=== PATIENT | female | born 2000 | race African-American/Black ===

== ENCOUNTER 2024-12-23 20:23 | Emergency (ER) | payer OTHER, SELFPAY ==
--- NOTE | ~2024-12-23 | CT_ITS ---
CT of the Abdomen and Pelvis: Indication: Abdominal pain Technique: 2.5 mm axial scans were obtained through the abdomen and pelvis following intravenous adm inistration of 100 cc of Omnipaque 350. Dose reduction technique was used on this scan by utilizing a utomated exposure control and iterative reconstruction technique. The dose-length product (DLP) was 4 08.91 mGy-cm. Findings: Scans through the lung bases are unremarkable. The liver, spleen, pancreas, gallbladder, adrenals and kidneys are within normal limits. No evidence of aortic aneurysm. No lymphadenopathy. No bowel obstruction or bowel wall thickening. There is no evidence to suggest acute appendicitis. Images through the pelvis were performed. 3.5 cm right ovarian cyst present. No other adnexal mass se en. No ascites. Urinary bladder unremarkable. Impression: 3.5 cm right ovarian cyst. Reviewed, dictated and finalized at [facility]. GENERATION MARKETING MANAGER Impression: 3.5 cm right ovarian cyst.
--- OUTSIDE RECORDS SUMMARY | 2024-12-23 20:21 | XMS_ITS | CONTINUITY OF CARE DOCUMENT ---
Author Name sonny dennis Address Unknown Organization [facility] [address] Address [address] [place] [address] Phone [phone] Care Team Providers Care Paper Cutting Machine Operator Name Role Phone Rush Dunn MD Unavailable [phone] Rush Dunn MD Unavailable [phone] INSURANCE PROVIDERS Payer name Policy type / Coverage type Eduardo red green party ID [facility] [facility] (MEDICAID) Medicaid [id number]
[2024-12-23 20:42] VITALS: BP 127/78; PULSE 85; RESP 16; TEMP 36.7; O2SAT 100
[2024-12-23 22:00] VITALS: BP 130/67; PULSE 89; RESP 18; O2SAT 100
--- OUTSIDE RECORDS SUMMARY | 2024-12-23 23:03 | XMS_ITS | Patient Health Summary ---
Author Organization [facility] HipChat Address [address] [facility] [place] [address] Care Team Providers Care Wool Hat Flanger Name Role Phone Allan Davalos Primary Care Provider [phone] Note from [facility],non-owned Affiliates and Associated Physician Practices is amultiple site organization consisting of ambulatory clinics and hospital sitesin [place], [place], [place] and [place]. This disclosure is being madepursuant to the Care Everywhere program and may not contain all information available regarding this patient. Last updated 18.[facility] Allergies No known active allergies Medications * Be aware that medications may not be up to date on this document. Alwaysverify current medications with the patient. * acetaminophen (TYLENOL) 500 MG tablet Take 500 mg by mouth every 4 hours as needed for Fever or Pain Maximum allowable Acetaminophen amount = 4 Grams (4000 mg) / 24 hours. * famotidine (PEPCID) 20 MG tablet(Started 09/04/2020) Take 1 tablet by mouth once daily * scopolamine (Transderm-Scop) 1 MG patch(Started 09/20/2022) Apply 1 (one) patch to skin every 72 hours as needed for Other * prochlorperazine (Compazine) 10 MG tablet(Started 09/20/2022) Take 1 (one) tablet by mouth every 8 hours as needed for Nausea/Vomiting * fluticasone propionate (Flonase Allergy Relief) 50 MCG/ACT nasal spray(Started 01/11/2024) [place] 2 (two) sprays into each nostril once daily Reasons: Stuffy Nose * cetirizine (ZyrTEC) 10 MG tablet(Started 01/11/2024) Take 1 (one) tablet by mouth once daily * ibuprofen (Motrin) 400 MG tablet(Started 01/11/2024) Take 1 (one) tablet by mouth every 6 hours as needed for Pain Reasons: Fever, Pain Social History Tobacco Use Types Packs/Day Years Used Date Smoking Tobacco: Never Smokeless Tobacco: Never Tobacco Cessation:Counseling Given: Not Answered Alcohol Use Standard Drinks/Week Comments Never 0 (1 standard drink = 0.6 oz pur e alcohol) AUDIT-C Answer Date Recorded Q1: How often do you have a drink containing alc ohol? Never 05/24/2020 Average Number of Drinks Not on file 020 Frequency of Binge Drinking Not on file 04/2020 Sex and Gender Information Value Date Recorded Sex Assigned at Not on file Gender Identity Not on file Sexual Orientation Not on file Last Filed Vital Signs Vital Sign Reading Time Taken Comments Blood Pressure 102/62 01/11/2024 7:23 PM [facility] Pulse 72 01/11/2024 7:23 PM [facility] Temperature 36.4 ??C (97.6 ??F) 01/11/2024 7:23 PM CS T Respiratory Rate 18 01/11/2024 7:23 PM [facility] Oxygen Saturation 97% 01/11/2024 7:23 PM [facility] Inhaled Oxygen Concentration - - Weight 57.6 kg (126 lb 15.8 oz) 01/11/2024 7:23 PM [facility] Height 165.1 cm (5' 5 ) 09/27/2022 11:5 4 AM [facility] Body Mass Index 21.13 09/27/2022 11:54 AM [facility] Procedures * US OB LESS 14 WKS W TRANSV W DOPP(Performed 09/20/2022) Performed for Pelvic pain in female * CBC W AUTO DIFFERENTIAL(Performed 09/20/2022) * MAGNESIUM BLOOD(Performed 09/20/2022) * HCG BETA BLOOD QUANTITATIVE(Performed 09/20/2022) * COMPREHENSIVE METABOLIC PANEL(Performed 09/20/2022) * HCG URINE QUALITATIVE(Performed 09/04/2020) * URINALYSIS W/MICROSCOPIC NO CULTURE(Performed 09/04/2020) * DIFFERENTIAL MANUAL(Performed 09/04/2020) * LIPASE BLOOD(Performed 09/04/2020) * COMPREHENSIVE METABOLIC PANEL(Performed 09/04/2020) * CBC W AUTO DIFFERENTIAL(Performed 09/04/2020) * HCG URINE QUAL POCT NOTIFICATION(Performed 05/25/2020) * HCG URINE QUALITATIVE - POCT (IP) INTERFACED(Performed 05/25/2020) * URINALYSIS W/MICROSCOPIC NO CULTURE(Performed 05/25/2020) * CT HEAD WO CONTRAST(Performed 04/29/2016) Performed for Chronic nonintractable headache, unspecified headache type * HCG URINE QUALITATIVE - POCT (IP) BEAKER(Performed 04/29/2016) * MONONUCLEOSIS SCREEN(Performed 04/29/2016) * PT PTT PANEL(Performed 04/29/2016) * CBC W AUTO DIFFERENTIAL(Performed 04/29/2016) * CULTURE STREP GROUP A(Performed 04/29/2016) * STREP A SCREEN DIRECT W RFLX STREP A CULTURE(Performed 04/29/2016) * CULTURE STREP GROUP A(Performed 06/23/2014) * STREP A SCREEN DIRECT W RFLX STREP A CULTURE(Performed 06/23/2014) Results * US OB LESS 14 WKS W TRANSV W DOPP (09/20/2022 4:27 PM CDT) Anatomical Region Laterality Modality Pelvis Ultrasound 09/20/2022 4:50 PM CDT Impressions 09/20/2022 4:53 PM CDT IMPRESSION: 1. ??Single live intrauterine gestation, 9 weeks 5 days. 2. ??Small subchorionic hemorrhage > Interpreting Provider: Bibiana Villafana MD on 09/20/2022 4:53 PM Narrative 09/20/2022 4:53 PM CDT PROCEDURE: ??US OB LESS 14 WKS W TRANSV W DOPP, DATE/TIME OF EXAM: 09/20/2022 4:27 PM, LOCATION ??[facility] INDICATION: R10.2: Pelvic and perineal pain ADDITIONAL CLINICAL INFORMATION: Ordering Provider Reason For Exam: Technologist Note: ??Pelvic pain, beta hCG greater than 225,000 Additional: COMPARISON: None. TECHNIQUE: Real time transvaginal pelvic ultrasound was performed by the email operations manager with DICOM image capture. Obstetric follow-up care is recommended possibly including follow-up laboratory evaluation and dedicated obstetric ultrasound examinations at OB's discretion. This exam does not constitute a survey. FINDINGS: The uterus measures 9.6 x 7.1 x 8.1 cm. ??The myometrium is normal. ??Within the fundal endometrial canal there is a gestational sac containing a pole and yolk sac. ??Based on crown-rump length, gestational age is 9 weeks and 5 days with estimated date of delivery of 04/20/2023. ?? heart rate is recorded at 156 bpm. ??There is a small subchorionic hemorrhage measuring 1.2 x 0.2 x 0.8 cm. The right ovary measures 2.8 x 1.3 x 1.7 cm and contains small simple follicles and is normally perfused as seen on color Doppler with spectral analysis. The left ovary measures 3.8 x 2.0 x 3.3 cm and contains a dominant but simple 1.8 cm follicle. ??The ovary is normally perfused as seen on color Doppler with spectral analysis. No free fluid. ??The maternal urinary bladder is normal. Procedure Note Bibiana Villafana MD - 09/20/2022 PROCEDURE: US OB LESS 14 WKS W TRANSV W DOPP, DATE/TIME OF EXAM: 09/20/2022 4:27 PM, LOCATION [facility] INDICATION: R10.2: Pelvic and perineal pain ADDITIONAL CLINICAL INFORMATION: Ordering Provider Reason For Exam: Technologist Note: Pelvic pain, beta hCG greater than 225,000 Additional: COMPARISON: None. TECHNIQUE: Real time transvaginal pelvic ultrasound was performed by thesonographer with DICOM image capture. Obstetric follow-up care is recommended possibly including follow-up laboratory evaluation and dedicated obstetric ultrasound examinations at OB's discretion. This exam does not constitute a survey. FINDINGS: The uterus measures 9.6 x 7.1 x 8.1 cm. The myometrium is normal.Within the fundal endometrial canal there is a gestational sac containing afetal pole and yolk sac. Based on crown-rump length, gestational age is 9weeks and 5 days with estimated date of delivery of 04/20/2023. heartrate is recorded at 156 bpm. There is a small subchorionic hemorrhagemeasuring 1.2 x 0.2 x 0.8 cm. The right ovary measures 2.8 x 1.3 x 1.7 cm and contains small simple follicles and is normally perfused as seen on color Doppler withspectral analysis. The left ovary measures 3.8 x 2.0 x 3.3 cm and contains a dominant but simple 1.8 cm follicle. The ovary is normally perfused as seen on color Doppler with spectral analysis. No free fluid. The maternal urinary bladder is normal. IMPRESSION: 1. Single live intrauterine gestation, 9 weeks 5 days. 2. Small subchorionic hemorrhage > Interpreting Provider: Bibiana Villafana MD on 09/20/2022 4:53 PM [employer] LEGAL DIRECTOR-CAMP COORDINATOR US ORDERABLES * (ABNORMAL) CBC W AUTO DIFFERENTIAL (09/20/2022 1:51 PM CDT) Only the most recent of3 resultswithin the time period is included. WBC 7.9 4.4 - 10.7 x10E9/L 09/20/2022 1:53 PM CDT [facility] WBC Corrected 09/20/2022 1:53 PM CDT [facility] RBC 4.49 3.80 - 5.20 x10E12/L 09/20/2022 1:53 PM CDT [facility] Hemoglobin 12.7 12.0 - 15.6 gm/dL 09/20/2022 1:53 PM CDT [facility] Hematocrit 37.1 35.9 - 45.5 % 09/20/2022 1:53 PM CDT [facility] MCV 82.6 80.7 - 98.3 fl 09/20/2022 1:53 PM CDT [facility] MCH 28.3 26.7 - 34.0 pg 09/20/2022 1:53 PM CDT [facility] MCHC 34.2 30.8 - 35.9 gm/dL 09/20/2022 1:53 PM CDT [facility] Platelet Count 344 153 - 416 x10E9/L 09/20/2022 1:53 PM CDT [facility] RDW-CV 12.8 12.1 - 14.9 % 09/20/2022 1:53 PM CDT [facility] MPV 8.7(L) 9.4 - 12.9 fl 09/20/2022 1:53 PM CDT [facility] Neutrophils % 56.3 44.0 - 73.0 % 09/20/2022 1:53 PM CDT [facility] Lymphocytes % 32.6 20.0 - 43.0 % 09/20/2022 1:53 PM CDT [facility] Monocytes % 9.0 5.0 - 13.0 % 09/20/2022 1:53 PM CDT [facility] Eosinophils % 1.3 0.0 - 6.0 % 09/20/2022 1:53 PM CDT [facility] Basophils % 0.5 0.0 - 2.0 % 09/20/2022 1:53 PM CDT [facility] Immature Granulocytes 0.3 0 - 1 % 09/20/2022 1:53 PM CDT [facility] Neutrophil Absolute 4.47 2.01 - 7.14 x10E9/L 09/20/2022 1:53 PM CDT [facility] Lymphocytes Absolute 2.58 1.07 - 3.94 x10E9/L 09/20/2022 1:53 PM CDT [facility] Monocytes Absolute 0.71 0.26 - 1.07 x10E9/L 09/20/2022 1:53 PM CDT [facility] Eosinophils Absolute 0.10 0 - 0.47 x10E9/L 09/20/2022 1:53 PM CDT [facility] Basophils Absolute 0.04 0 - 0.08 x10E9/L 09/20/2022 1:53 PM CDT [facility] Immature Granulocytes Absolute 0.02 0.00 - 0.06 x10E9/L 09/20/2022 1:53 PM CDT [facility] nRBC Auto 0 /100 WBC 09/20/2022 1:53 PM CDT [facility] Blood BLOOD SPECIMEN / Unknown Venipuncture / Unknown 09/20/2022 1:51 PM CDT 09/20/2022 1:50 PM CDT Rakan [facility] - HEMATOLOGY ORD ERABLES [facility] [address] [place] [address] * (ABNORMAL) COMPREHENSIVE METABOLIC PANEL (09/20/2022 1:50 PM CDT) Only the most recent of2 resultswithin the time period is included. [facility] Glucose 74 70 - 105 mg/dL 09/20/2022 2:08 PM CDT [facility] Sodium 134(L) 136 - 145 mmol/L 09/20/2022 2:08 PM CDT [facility] Potassium 4.1 3.5 - 5.1 mmol/L 09/20/2022 2:08 PM CDT [facility] Chloride 102 98 - 107 mmol/L 09/20/2022 2:08 PM CDT [facility] CO2 22(L) 23 - 31 mmol/L 09/20/2022 2:08 PM CDT [facility] Calcium 9.4 8.4 - 10.4 mg/dL 09/20/2022 2:08 PM T [facility] Anion Gap 10 8 - 18 mmol/L 09/20/2022 2:08 PM CDT [facility] BUN 9 7 - 18.7 mg/dL 09/20/2022 2:08 PM CDT [facility] Creatinine 0.64 0.57 - 1.11 mg/dL 09/20/2022 2:08 PM T [facility] Alkaline Phosphatase 53 40 - 150 U/L 09/20/2022 2:08 PM CDT [facility] ALT 16 0 - 61 U/L 09/20/2022 2:08 PM T [facility] AST 17 5 - 34 U/L 09/20/2022 2:08 PM T [facility] Protein Total 8.6(H) 6.4 - 8.3 gm/dL 09/20/2022 2:08 PM CDT [facility] Albumin 4.5 3.5 - 5.2 gm/dL 09/20/2022 2:08 PM CDT [facility] Bilirubin Total 0.4 0.2 - 1.2 mg/dL 09/20/2022 2:08 PM T [facility] eGFR by CKD-EPI >90 >=90 mL/min/1.7 3 m2 09/20/2022 2:08 PM T [facility] Blood BLOOD SPECIMEN / Unknown Venipuncture / Unknown 09/20/2022 1:50 PM CDT 09/20/2022 1:50 PM CDT Rakan [facility] - CHEMISTRY FRANCA Koo Organization Address City/State/ZIP Co de Phone Number [facility] [address] [phone] * HCG BETA BLOOD QUANTITATIVE (09/20/2022 1:50 PM CDT) hCG Quantitative >225,000 mIU/mL 09/20/20 2:34 PM CDT [facility] Blood BLOOD SPECIMEN / Unknown Venipuncture / Unknown 09/20/2022 1:50 PM CDT 09/20/2022 1:50 PM CDT Narrative [facility] - 09/20/2022 2:34 PM CDT ? hCG Reference Range, mIU/mL: ? Males ? 0-2.0 ? Non Females ? 0-6.0 ? Perimenopausal Females ages 41-55* ?0-7.7 ? Postmenopausal Females age >55* ? 0-14 ? Females, Weeks after Last Menstrual Period ?0.2-1 week ? 5-50 ?1 - 2 weeks ?50-500 ?2 - 3 weeks ?100-5000 ?3 - 4 weeks ?500-10,000 ?4 - 5 weeks ?1000-50,000 ?5 - 6 weeks ?10,000-100,000 ?6 - 8 weeks ?15,000-200,000 ?2 - 3 months ? 10,000-100,000 ?Trophoblastic Disease ?>100,000 *In higher than expected hCG in females > age 40, a serum FSH >20 IU/L makes unlikely. Rakan [facility] - CHEMISTRY LETTYNexBioFADUMO Performing Organization Address [facility] Co de Phone Number [facility] [address] [place] [id number] * MAGNESIUM BLOOD (09/20/2022 1:50 PM CDT) [facility] Magnesium 2.1 1.6 - 2.6 mg/dL 09/20/2022 2:08 PM CDT [facility] Blood BLOOD SPECIMEN / Unknown Venipuncture / Unknown 09/20/2022 1:50 PM CDT 09/20/2022 1:50 PM CDT Rakan [facility] - CHEMISTRY UNX Performing Organization Address [facility] de Phone Number [facility] [address] [place] [phone] * (ABNORMAL) URINALYSIS W/MICROSCOPIC NO CULTURE (09/04/2020 2:50 AM CDT) Only the most recent of2 resultswithin the time period is included. Color UA Yellow Straw, Yellow, Colorless 09/04/2020 3:15 AM CDT [facility] Clarity UA Cloudy(A) Clear, Slt Cloudy 09/04/2020 3:15 AM CDT [facility] Specific Wiley UA 1.028 1.005 - 1.030 09/04/2020 3:15 AM CDT [facility] pH UA 5.0 5.0 - 8.0 pH 09/04/2020 3:15 AM CDT H [facility] Protein UA Negative Negative mg/dL 09/04/2020 3:15 AM [facility] Glucose UA Negative Negative mg/dL 09/04/2020 3:15 AM [facility] Ketone UA Negative Negative mg/dL 09/04/2020 3:15 AM [facility] Bilirubin UA Negative Negative mg/dL 09/04/2020 3:15 AM [facility] Blood UA 2+(A) Negative 09/04/2020 3:15 AM [facility] Nitrite UA Negative Negative 09/04/2020 3:15 AM [facility] Leukocyte Esterase Trace(A) Negative 09/04/2020 3:15 AM [facility] Urobilinogen UA 2.0(A) Negative mg/dL 09/04/2020 3:15 AM [facility] RBC UA 0-2 None Seen, 0-2, 3-5 /HPF 09/04/2020 3:15 AM [facility] WBC UA 0-5 None Seen, 0-5 /HPF 09/04/2020 3:15 AM [facility] Bacteria UA Trace None, Trace /HPF 09/04/2020 3:15 AM [facility] Squamous Epithelial Cells UA >20(A) None Seen, 0-2 /HPF 09/04/2020 3:15 AM [facility] Mucus UA 3+(A) None, 1+ /LPF 09/04/2020 3:15 AM [facility] Urine URINE SPECIMEN OBTAINED BY CLEAN CATCH PROCEDURE / Unknown Collection / Unknown 09/04/2020 2:50 AM CDT 09/04/2020 2:56 AM CDT [facility] - 09/04/2020 3:15 AM CDT Jonas Pederson MD LAB - URINALYSIS ORD ERABLES [address] [address], [place] [phone] * HCG URINE QUALITATIVE (09/04/2020 2:50 AM CDT) Test Urine Negative Negative 09/04/2020 3:13 AM [facility] Urine URINE / Unknown Collection / Unknown 09/04/2020 2:50 AM CDT 09/04/2020 2:56 AM CDT Jonas Pederson MD LAB - URINALYSIS ORD ERABLES [facility] [address] [place] [address], [facility] [phone] * (ABNORMAL) DIFFERENTIAL MANUAL (09/04/2020 2:44 AM CDT) WBC (corrected for NRBC) 7.2 10? 3 /uL 09/04/2020 4:36 AM [facility] Total Cell Count 100 09/04/2020 4:36 AM [facility] Neutrophils Absolute Manual 2.02 1.60 - 7.00 10? 3 /uL 09/04/2020 4:36 AM [facility] Comment:(BANDS+SEGS) x WBC = NEUT # (ANC) Lymphocyte Absolute Manual 4.46(H) 0.80 - 2.90 10? 3 /uL 09/04/2020 4:36 AM [facility] Monocytes Absolute Manual 0.50 0.14 - 0.66 10? 3 /uL 09/04/2020 4:36 AM [facility] Eosinophils Absolute Manual 0.22 0.00 - 0.22 10? 3 /uL 09/04/2020 4:36 AM [facility] Neutrophil % Manual 28(L) 30 - 60 % 09/04/2020 4:36 AM [facility] Lymphocyte % Manual 62(H) 20 - 45 % 09/04/2020 4:36 AM [facility] Monocytes % Manual 7 2 - 10 % 09/04/2020 4:36 AM [facility] Eosinophils % Manual 3 1 - 6 % 09/04/2020 4:36 AM [facility] Platelet Estimate Adequate Adequate 09/04/2020 4:36 AM [facility] RBC Morphology Normal 09/04/2020 4:36 AM [facility] Blood BLOOD SPECIMEN / Unknown Venipuncture / Unknown 09/04/2020 2:44 AM CDT 09/04/2020 2:56 AM CDT Jonas Pederson MD LAB - HEMATOLOGY ORD ERABLES Performing Organization Address [facility]/ZIP Co de Phone Number [facility] [address] [place] [address], [place] [phone] * LIPASE BLOOD (09/04/2020 2:44 AM CDT) Lipase 31 8 - 78 Units/L 09/04/2020 3:25 AM CDT [facility] Blood BLOOD SPECIMEN / Unknown Venipuncture / Unknown 09/04/2020 2:44 AM CDT 09/04/2020 2:56 AM CDT Jonas Pederson MD LAB - CHEMISTRY ORDE RABFADUMO Performing Organization Address [facility] Co de Phone Number [address] [address], [place] [phone] * HCG URINE QUAL POCT NOTIFICATION (05/25/2020 1:56 AM CDT) Comment Notification Label Only - See Separate Report 05/25/2020 1:56 AM CDT [facility] Urine URINE / Unknown 0 12:42 AM CDT Caitlin Ashby DO LAB - URINALYSIS ORD ERABLES Performing Organization Address [facility] Co de Phone Number [facility] [address] [place] [address] * HCG URINE QUALITATIVE - POCT (IP) INTERFACED (05/25/2020 12:45 AM CDT) HCG Qual Urine Negative Negative 05/25/2020 12:56 AM CDT [facility] Urine URINE / Unknown 05/25/2020 1 2:45 AM CDT 05/25/2020 12:56 AM CDT Caitlin Ashby DO LAB - POINT OF CARE ORDERABLES [facility] [address] [place] [address] * CT HEAD NON CONTRAST (04/29/2016 4:40 PM CDT) Anatomical Region Laterality Modality Head Computed Tomogra phy 04/30/2016 8:34 AM CDT Impressions 04/30/2016 9:49 AM CDT 1. No acute intracranial process. Preliminary results reported by Dr. Christiansen to nAna Bah NP on 04/29/2016 at 5:11PM. Report dictated by Roslyn Belle M.D. (certified residential medication aide). Narrative 04/30/2016 9:49 AM CDT EXAMINATION: Computed Tomography (CT) of the head without contrast HISTORY: 16-year-old female one year history of headache and worsening last 2 weeks. Recent history of frequent nosebleeds. TECHNIQUE: CT of the head was performed without contrast according to standard protocol. COMPARISON: No prior study is available for comparison. FINDINGS: No acute intra- or extra-axial fluid collections are identified. The ventricles are of normal size, shape, and morphology. The basilar cisterns are patent. No mass effect or midline shift is seen. The webb-white matter differentiation is normal. Other than small mucous retention cysts in the right maxillary and ethmoid sinuses, the visualized portions of the orbits, paranasal sinuses, and mastoids appear normal. No acute fracture is identified. Procedure Note Lonnie Almonte MD - 04/30/2016 EXAMINATION: Computed Tomography (CT) of the head without contrast HISTORY: 16-year-old female one year history of headache and worsening last 2 weeks. Recent history of frequent nosebleeds. TECHNIQUE: CT of the head was performed without contrast according to standard protocol. COMPARISON: No prior study is available for comparison. FINDINGS: No acute intra- or extra-axial fluid collections are identified. The ventricles are of normal size, shape, and morphology. The basilar cisterns are patent. No mass effect or midline shift is seen. The webb-white matter differentiation is normal. Other than small mucous retention cysts in the right maxillary and ethmoid sinuses, the visualized portions of the orbits, paranasal sinuses, and mastoids appear normal. No acute fracture is identified. IMPRESSION 1. No acute intracranial process. Preliminary results reported by Dr. Christiansen to Anna Bah NP on 04/29/2016 at 5:11PM. Report dictated by Roslyn Belle M.D. (certified residential medication aide). Sayda Harris APRN-[facility] CT ORDERA BLES * HCG URINE QUALITATIVE - POCT (IP) BEAKER (04/29/2016 4:11 PM CDT) HCG Qual Urine Negative Negative [facility] POCT TESTING QC Verified Yes Yes [facility] PO CT TESTING Urine specimen (specimen) URINE / Unknown 04/29/2016 4:11 PM CDT Sayda Harris APRN-[facility] LAB - POI NT OF CARE ORDERABLES Performing Organization Address [facility] Co de Phone Number [facility] PO[facility] [address] [phone] * MONONUCLEOSIS SCREEN (04/29/2016 3:11 PM CDT) Pathologist [facility] Mononucleosis Screen Negative Negative 04/29/2016 3:44 PM CDT [facility] Blood BLOOD SPECIMEN / Unknown Lab Venipuncture / Unknown 04/29/2016 3:11 PM CDT 04/29/2016 3:18 PM CDT [facility] - RACHEL TENA ORDERABLES Performing Organization Address City/[facility]/ZIP Co de Phone Number [facility] [address] [place] [address] * PT PTT PANEL (04/29/2016 3:11 PM CDT) PT 10.8 9.5 - 11.6 sec 04/29/2016 3:52 PM CDT [facility] INR 1.0 0.9 - 1.1 04/29/2016 3:52 PM CDT [facility] PTT 26.0 21.0 - 32.0 sec 04/29/2016 3:52 PM CDT [facility] Blood BLOOD SPECIMEN / Unknown Lab Venipuncture / Unknown 04/29/2016 3:11 PM CDT 04/29/2016 3:18 PM CDT Narrative [facility] - 04/29/2016 3:52 PM CDT Conventional Warfarin Anticoagulant Therapy: INR Reference Range: ??2.0-3.0 Intensive Warfarin Anticoagulant Therapy: INR Reference Range: ? 2.5-3.5 Heparin Therapeutic Range for PTT: 47.7 - 68.6 seconds. Sayda Harris [facility] - COA GULATION ORDERABLES Performing Organization Address [facility] Co de Phone Number [facility] [address] [place] [phone] * STREP A SCREEN DIRECT W RFLX STREP A CULTURE (04/29/2016 3:00 PM CDT) Only the most recent of2 resultswithin the time period is included. Strep A Rapid Negative Negative 04/29/2016 3:31 PM CDT [facility] Microbiology ENTIRE THROAT (SURFACE REGION OF NECK) / Unknown 04/29/2016 3:00 PM CDT 04/29/2016 3:17 PM CDT Narrative [facility] - 04/29/2016 3:31 PM CDT Test has reflexed to a Strep A culture. Sayda Harris [facility] - [facility] ROBIOLOGY ORDERABLES Performing Organization Address [facility] Co de Phone Number [facility] [address] [place] [phone] * CULTURE STREP GROUP A (04/29/2016 3:00 PM CDT) Only the most recent of2 resultswithin the time period is included. Culture Negative for Beta Hemolytic Streptococcus Group A [facility] 05/01/2016 5:21 AM CDT [facility] MICROBIOLOGY Microbiology ENTIRE THROAT (SURFACE REGION OF NECK) / Unknown 04/29/2016 3:00 PM CDT 04/29/2016 3:17 PM CDT Sayda Janna Wilmes LEGAL DIRECTOR-CAMP COORDINATOR LAB - [facility] ROBIOLOGY ORDERABLES [facility] [address] [place], [place] [address], [facility] [phone] Care Teams Wool Hat Flanger Relationship Specialty Start Date End Date Allan Davalos [address] [place] [phone] PCP - General Family Medicine 01/11/24
--- OUTSIDE RECORDS SUMMARY | 2024-12-23 23:03 | XMS_ITS | Clinical Summary ---
Author Organization [facility] Address [address] [place] [address] Care Team Providers Care Primary Education Professor Name Role Phone Allan Davalos Primary Care Provider [phone] Source Comments [facility],non-owned Affiliates and Associated Physician Practices is amultiple site organization consisting of ambulatory clinics and hospital sitesin [place], [place]. This disclosure is being madepursuant to the Care Everywhere program and may not contain all information available regarding this patient. Last updated 18.[facility] Allergies No known active allergies Medications * Be aware that medications may not be up to date on this document. Alwaysverify current medications with the patient. Medication Sig Dispensed Refills Start Date End Date Status acetaminophen (TYLENOL) 500 MG tablet Take 500 mg by mouth every 4 hours as needed for Fever or Pain Maximum allowable Acetaminophen amount = 4 Grams (4000 mg) / 24 hours. Active famotidine (PEPCID) 20 MG tablet Take 1 tablet by mouth once daily 30 tablet 09/04/2020 Active Additional Information Patient not taking.Reported on 01/11/2024 scopolamine (Transderm-Scop) 1 MG patch Apply 1 (one) patch to skin every 72 hours as needed for Other 5 patch 09/20/2022 Active Additional Information Patient not taking.Reported on 01/11/2024 prochlorperazine (Compazine) 10 MG tablet Take 1 (one) tablet by mouth every 8 hours as needed for Nausea/Vomiting 25 tablet 09/20/2022 Active Additional Information Patient not taking.Reported on 01/11/2024 fluticasone propionate (Flonase Allergy Relief) 50 MCG/ACT nasal sprayIndications:N rebecca Congestion [place] 2 (two) sprays into each nostril once daily Reasons: Stuffy Nose 1 Each 01/11/2024 Active cetirizine (ZyrTEC) 10 MG tablet Take 1 (one) tablet by mouth once daily 30 tablet 01/11/2024 Active ibuprofen (Motrin) 400 MG tabletIndications: Fever,Pain Take 1 (one) tablet by mouth every 6 hours as needed for Pain Reasons: Fever, Pain 30 tablet 01/11/2024 Active Social History Tobacco Use Types Packs/Day Years [...] Comments Blood Pressure 102/62 01/11/2024 7:23 PM YARD LABOR SUPERVISOR Pulse 72 01/11/2024 7:23 PM YARD LABOR SUPERVISOR Temperature 36.4 ??C (97.6 ??F) 01/11/2024 7:23 PM CS T Respiratory Rate 18 01/11/2024 7:23 PM YARD LABOR SUPERVISOR Oxygen Saturation 97% 01/11/2024 7:23 PM YARD LABOR SUPERVISOR Inhaled Oxygen Concentration - - Weight 57.6 kg (126 lb 15.8 oz) 01/11/2024 7:23 PM YARD LABOR SUPERVISOR Height 165.1 cm (5' 5 ) 09/27/2022 11:5 4 AM YARD LABOR SUPERVISOR Body Mass Index 21.13 09/27/2022 11:54 AM YARD LABOR SUPERVISOR Plan of Treatment Health Maintenance Due Date Last Done Comments HIV SCREENING 2017 HPV VACCINE (1 - 3-dose series) 2017 CHLAMYDIA/GONORRHEA SCREENING 2018 MENINGOCOCCAL (Group B) VACCINE (1 of 2 - Standard) 2018 HEPATITIS C SCREENING 04/17/2020 DTAP/TDAP/TD VACCINES (1 - Tdap) 2021 HEPATITIS B VACCINE (1 of 3 - 19+ 3-dose series) 2021 COVID-19 VACCINE ( - 2024-25 season) 2024 INFLUENZA VACCINE (#1) 2024 DEPRESSION SCREENING 11/19/2024 PAP SMEAR 01/31/2026 01/31/2023, 01/17, 08/21/2022, Additional history exists ZOSTER VACCINE (1 of 2) 2052 HIB VACCINE Aged Out No longer eligi ble based on patient's age to complete this topic MENINGOCOCCAL VACCINE Aged Out No patricia pritesh eligible based on patient's age to complete this topic PNEUMOCOCCAL VACCINE Aged Out No long er eligible based on patient's age to complete this topic Care Teams Primary Education Professor Relationship Specialty Start Date End Date Allan Davalos [address] [place], [place] [phone] PCP - General Family Medicine 01/11/24
--- OUTSIDE RECORDS SUMMARY | 2024-12-23 23:03 | XMS_ITS | Referral Summary ---
Author Organization [facility] Address [address] [place] [address] Care Team Providers Care Hot Pipe Gauger Name Role Phone Allan Davalos Primary Care Provider [phone] Source Comments [facility],non-owned Affiliates and Associated Physician Practices is amultiple site organization consisting of ambulatory clinics and hospital sitesin [place], [place], [place] and [place]. This disclosure is being madepursuant to the Care Everywhere program and may not contain all information available regarding this patient. Last updated 18.[facility] Allergies No known active allergies Medications * [...] Relief) 50 MCG/ACT nasal sprayIndications:N rebecca Congestion [place] 2 (two) sprays into each nostril once [...] Comments Blood Pressure 102/62 01/11/2024 7:23 PM SAUSAGE WRAPPER Pulse 72 01/11/2024 7:23 PM SAUSAGE WRAPPER Temperature 36.4 ??C (97.6 ??F) 01/11/2024 7:23 PM CS T Respiratory Rate 18 01/11/2024 7:23 PM SAUSAGE WRAPPER Oxygen Saturation 97% 01/11/2024 7:23 PM SAUSAGE WRAPPER Inhaled Oxygen Concentration - - Weight 57.6 kg (126 lb 15.8 oz) 01/11/2024 7:23 PM SAUSAGE WRAPPER Height 165.1 cm (5' 5 ) 09/27/2022 11:5 4 AM SAUSAGE WRAPPER Body Mass Index 21.13 09/27/2022 11:54 AM SAUSAGE WRAPPER Plan of Treatment Not on file Care Teams Hot Pipe Gauger Relationship Specialty Start Date End Date Allan Davalos [address] [place] [phone] PCP - General Family Medicine 01/11/24
--- OUTSIDE RECORDS SUMMARY | 2024-12-23 23:04 | XMS_ITS | Data Portability ---
Author Organization [place] [facility], [facility] Address [address] [place] [address] Assessment No assessment recorded. Plan of Treatment Reminders Order Date Submit Date Provider Last Modified By Organization Details Last Modified Time Details Appointments None recorded. Lab None recorded. Referral None recorded. Procedures None recorded. Surgeries None recorded. Imaging None recorded. Medication Orders albuterol sulfate HFA 90 mcg/actuati on aerosol inhaler 2021 [place] [facility], [facility], [place], [address] [place], [address], 16:20:22 triamcinolo ne acetonide 0.1 % topical ointment [facility], [place], [address] [place], [address], 16:20:22 Patient TargetsNo targets recorded. Patient Instructions Encounter Date Encounter Id Patient Instructions Last Modified By Organization Details Last Modified Time 09/05/2022 [id number] A healthy lifestyle: care instructions evore Not available 09/05/2022 16:20:18 Reason for Referral None Reported. Problems Name Problem SNOMED Code Status Onset Date Resolution Date Notes Provider Name and Address Organization Details Recorded Time Asthma 663042627 Active Gabby balderas [place] - [facility] 09/05/2022 15:43:30 Eczema 63691516 Active Sarah Royal PA-C [address] [facility] [address] [facility], [address], [place], [address] , [facility] - [facility] 09/05/2022 16:18:10 Problem Notes None recorded. Medical Equipment None Reported. Allergies Allergen ID Allergen Name Allergen Category Reaction Reaction Severity Criticality Documentation Date Start Date Code Code System Note Provider Name and Address Organization Details Recorded Time 6007 cat dander environme nt Not available Not available Not available 09/05/2022 11939 UNK Gabby Thilges [facility], [facility] 15:41:17 6008 POLLEN EXTRACTS environme nt,medica tion Not available Not available Not available 09/05/2022 86185 6 RxNorm Gabby Thilges [facility], [facility] 15:41:23 Medications Name Sig Start Date Stop Date Status Note LastModified by Organization Details LastModified Time cyclobenzap rine 10 mg tablet TAKE 1 TABLET BY MOUTH EVERY 8 HOURS 09/05 completed Not Available Not Available Not Available doxycycline hyclate 100 mg capsule TAKE 1 CAPSULE BY MOUTH TWICE DAILY 09/05 completed Not Available Not Available Not Available cetirizine 10 mg tablet TAKE 1 TABLET BY MOUTH NEEDED AT BEDTIME FOR 10 DAYS 09/05 completed Not Available Not Available Not Available azithromyci n 250 mg tablet TAKE 2 TABLETS BY MOUTH ON DAY 1, AND THEN TAKE 1 TABLET BY MOUTH ONCE A DAY ON DAY 2 THROUGH DAY 5 09/05 completed Not Available Not Available Not Available metronidazo le 0.75 % (37.5 mg/5 gram) vaginal gel INSERT 1 APPLICATO RFUL EVERY DAY BY VAGINAL ROUTE AT BEDTIME FOR 7 DAYS. 09/05 completed Not Available Not Available Not Available ondansetron HCl 4 mg tablet TAKE 1 TABLET BY MOUTH 4 TIMES DAILY NEEDED FOR NAUSEA OR VOMITING 09/05 completed Not Available Not Available Not Available prednisone 20 mg tablet TAKE 1 TABLET BY MOUTH TWICE DAILY 09/05 completed Not Available Not Available Not Available cromolyn 4 % eye drops INSTILL 1 DROP INTO AFFECTED EYE(S) 4 TIMES DAILY FOR 7 DAYS 09/05 completed Not Available Not Available Not Available metronidazo le 500 mg tablet TAKE ONE TABLET BY MOUTH TWICE A DAY 09/05 completed Not Available Not Available Not Available ciprofloxac in 500 mg tablet TAKE 1 TABLET BY MOUTH EVERY 12 HOURS FOR 5 DAYS 09/05 completed Not Available Not Available Not Available sulfamethox azole 800 mg-trimetho prim 160 mg tablet TAKE 1 TABLET BY MOUTH EVERY 12 HOURS 09/05 completed Not Available Not Available Not Available ketorolac 10 mg tablet TAKE 1 TABLET BY MOUTH EVERY 6 HOURS NEEDED FOR PAIN 09/05 completed Not Available Not Available Not Available amoxicillin 875 mg tablet TAKE 1 TABLET BY MOUTH TWICE DAILY FOR 7 DAYS 09/05 completed Not Available Not Available Not Available phenazopyri dine 100 mg tablet TAKE 1 TABLET BY MOUTH THREE TIMES DAILY NEEDED FOR URINARY PAIN 09/05 completed Not Available Not Available Not Available cephalexin 500 mg capsule 09/05 completed Not Available Not Available Not Available triamcinolo ne acetonide 0.1 % topical ointment APPLY A THIN LAYER TO THE AFFECTED AREA(S) TWO TIMES A DAY active Not Available Not Available No t Available diclofenac sodium 75 mg tablet,amado yed release TAKE 1 TABLET BY MOUTH TWICE DAILY FOR 15 DAYS 09/05 completed Not Available Not Available Not Available montelukast 10 mg tablet TAKE 1 TABLET BY MOUTH ONCE DAILY IN THE MORNING 09/05 completed Not Available Not Available Not Available naproxen 500 mg tablet TAKE 1 TABLET BY MOUTH TWICE DAILY WITH FOOD 09/05 completed Not Available Not Available Not Available Ventolin HFA 90 mcg/actuati on aerosol inhaler INHALE TWO PUFFS INTO LUNGS EVERY 4 TO 6 HOURS NEEDED active Not Available Not Available No t Available nitrofurant oin monohydrate /macrocryst als 100 mg capsule TAKE 1 CAPSULE BY MOUTH TWICE DAILY FOR 5 DAYS 09/05 completed Not Available Not Available Not Available Symbicort 80 mcg-4.5 mcg/actuati on HFA aerosol inhaler INHALE 2 PUFFS INTO THE LUNGS TWICE A DAY FOR 30 DAYS active Not Available Not Available No t Available Xulane 150 mcg-35 mcg/24 hr transdermal patch APPLY 1 PATCH TOPICALLY ONCE A WEEK FOR 3 WEEKS 09/05 completed Not Available Not Available Not Available ID NOW COVID-19 Test Kit TEST DIRECTED TODAY 09/05 completed Not Available Not Available Not Available WesTab Plus 27 mg iron-1 mg tablet TAKE ONE TABLET BY MOUTH EVERY DAY 09/05 completed Not Available Not Available Not Available Vitals Date Recorded Body height Body temperature Oxygen saturation Oxygen saturation in Arterial blood by Pulse oximetry Heart rate Body mass index (BMI) Percentile per age and sex Body mass index (BMI) Body weight Systolic blood pressure Diastolic blood pressure Provider Name and Address Organization Details Last Updated DateTime 2 167.64 cm 97.1 [degF] 98 % 98 % 86 /min 62 % 22.9 kg/m2 96463.1 2 g 116 mm[Hg] 64 mm[Hg] Gabby Brent [facility] 15:49:38 Social History Question Answer Notes LastModified by Organizat ion Details LastModified Time Tobacco Smoking Status Never Smoker Gabby balderas [facility] 09/05/2022 15:44:02 What Is Your Level Of Alcohol Consumption? None Information not available 09/05/2022 What Is Your Level Of Caffeine Consumption? Occasional Information not available 09/05/2022 What Is Your Relationship Status? Single Information not available 09/05/2022 Do You Or Have You Ever Used Any Other Forms Of Tobacco Or Nicotine? No Information not available 09/05/2022 Sex: Unknown Functional Status None recorded. Mental Status None recorded. Family History Relationship Description Onset Age of this Age Resolved Age Notes LastModified by Organization Details LastModified Time Father No current problems or disability Not available 09/05 15:43:39 Mother No current problems or disability Not available 09/05 15:43:39 Medical History No medical history recorded. Gynecological History Statement/Question Response Date of LMP Obstetrics History GPAL:G 0 P 0 0 0 0 Past Encounters Encounter ID Performer Location Encounter Start Date Encounter Closed Date Diagnosis/Indication Diagnosis SNOMED-CT Code Diagnosis ICD10 Code Diagnosis Note [id number] Sarah Royal PA-C [facility], [facility] [address] [facility] [address] [place] [address] 09/05/2022 15:28:15 09/05/2022 16:50:30 Adult health examination 932465980 Z00.00 Patient presents to [facility] to establish care. Pt is overall healthy. Tacos Maintensheri e items addressed including BP. Baseline labs were drawn as she will continue care with her OBGYN. Plan to follow up with patient in 1 year, or sooner as needed. Pt agreed and had no further questions. Asthma 396900879 J45.90 9 Will trial albuterol inhaler as needed for asthma exacerbati ons. Eczema 35647022 L30.9 Rx for Triamcinol one sent to pharmacy. Advised to use this sparingly & only on areas of patchy skin/eczem a. For basic moisturize r, recommend [facility]/Ec zema Eucerin or Aquaphor twice daily. Also discussed that taking baths, along with the cold weather & being , are likely what has worsened her dry skin. Recommende d to switch to showers instead of baths to help prevent eczema from worsening. Vomiting of 90 643864 O21.9 OBGYN gave rx for Zofran which pt has yet to poultry picking machine tender. Also recommende d Unisom which may also help with sleep. If neither are beneficial , can try Famotidine 20 mg as her nausea/vom iting could potentiall y be due to acid reflux. Gestation period, 8 weeks 17167616 Z3A.08 Continue to follow up with OBGYN as scheduled. Again, call their clinic to see when you can get an US scheduled. Health Concerns Section Related Observation LastModified by Organization Detai ls LastModified Time None Recorded Concern Status LastModified by Organization Details LastModified Time None Recorded Advance Directives Directive None Recorded Payers Encounter Date Sequence Insurance Name Policy Number Policy Ayala Covered Member ID Ayala Member ID Guarantor Name 09/05/2022 1 [facility] (MEDICAID REPLACEMENT - HMO) Evonne Dumas [id number] Evonne Dumas Notes Date Note Type Note Provider Name and Address Organization Details Recorded Time 09/05/2022 text/html Evonne is a 22 yea r old {{male female*}} presenting to [facility] to establish care. Pt is 8 weeks currently. PMHx includes COVID-induced asthma & eczema. Pt states she was started on Symbicort inhaler to use as needed for coughing/SOB during & shortly after COVID. She has been out of this for the past month. States she was using ~2x/week. Denies wheezing, just uses when she has a cough or having troubles taking a deep breath. Pt states her eczema has worsened recently. It has started to affect her scalp, face, arms, hands, and especially her thighs/legs. Has been using Aveeno & CeraVe lotion, but does not feel this is helping. Also has Eucerin & Aquaphor at home that she has tried but not consistently. Pt also notes because of her , she has been very nauseous & has vomited multiple times. She will often wake up in the middle of the night due to these symptoms. She tends to take a warm bath which helps soothe her stomach & relax her. Her OBGYN recently prescribed her Zofran for the nausea, but she has not picked this up yet. She reports frustration with her OBGYN because she has only had 1 ultrasound at 4 weeks and only the gestational sac was visible. Based on how nauseous she is, as well as family history of twins, Evonne is concerned she may be with twins. Has tried to get another US scheduled but has been unsuccessful in coordinating with her OBGYN (Zoey Minor). Pt is otherwise doing well with no other concerns or complaints. Sarah Royal PA-C [address] [facility], [place], [address], [place] [facility] 09/05/2022 16:38:53 OBGyn Episode No OBEpisode recorded.
--- OUTSIDE RECORDS SUMMARY | 2024-12-23 23:04 | XMS_ITS | CONTINUITY OF CARE DOCUMENT ---
Author Name sonny dennis Address Unknown Organization [facility] Address [address] [place] [address] Phone [phone] Care Team Providers Care Wax Machine Operator Name Role Phone Rush Dunn MD Unavailable [phone] Rush Dunn MD Unavailable [phone] INSURANCE PROVIDERS Payer name Policy type / Coverage type Eduardo red libertarian ID [facility] ([facility]ICA[facility]) Medicaid [id number]
[2024-12-23 23:49] LABS: Basophils Absolute Auto 0.1 K/mm3 (0.0-0.1); Basophils Percent Auto 0.6 % (0.2-1.2); Eosinophils Absolute Auto 0.1 K/mm3 (0-0.3); Eosinophils Percent Auto 1.6 % (0-4.4); Hematocrit 43.4 % (37.0-47.0); Hemoglobin 14.6 g/dL (12.0-15.0); Immature Granulocyte Absolute 0.02 K/mm3 (0.00-0.031); Immature Granulocyte Percent A 0.2 % (0-0.5); Lymphocytes Absolute Auto 3.99 K/mm3 (0.9-3.2); Lymphocytes Percent Auto 45.8 % (18.3-44.2); Mean Corpuscular HGB Conc 33.6 g/dl (32-36); Mean Corpuscular Volume 86.3 fl (80-100); Monocytes Absolute Auto 0.6 K/mm3 (0.1-0.6); Monocytes Percent Auto 6.7 % (2.6-8.5); Neutrophils Absolute Auto 3.9 K/mm3 (1.3-6.7); Neutrophils Percent Auto 45.1 % (45.5-73.1); Platelet Count Result 337 k/mm3 (150-375); Red Blood Count 5.03 M/mm3 (4.2-5.4); White Blood Count 8.7 K/mm3 (4.5-10.0)
[2024-12-23 23:58] LABS: Anion Gap 15 mmol/L (4-12); Blood Urea Nitrogen 20 mg/dL (7-17); Calcium 9.8 mg/dL (8.4-10.2); Carbon Dioxide 23 mmol/L (22-30); Chloride 100 mmol/L (98-107); Estimated CRCL calculation 127 ml/min; Estimated Glomerular Filt Rate > 60; Glucose 85 mg/dL (65-110); Potassium 4.1 mmol/L (3.4-5.0); Sodium 138 mmol/L (137-145)
[2024-12-23 23:59] LABS: Lactic Acid Reflex 0.8 mmol/L (0.7-2.0)
--- NOTE | 2024-12-24 00:23 | ED.SKABFB ---
HPI - Skin/Abscess/Foreign Bdy General Chief complaint: Skin/Abscess/Foreign Body <KILEY Brown Last Filed: 12/24/24 03:29> Stated complaint: pain at recently repaired C-sec scar 12/19 <KILEY Brown Last Filed: 12/24/24 03:29> Time Seen by Provider: 12/23/24 22:46 <KILEY Brown Last Filed: 12/24/24 03:29> Source: patient <KILEY Brown Last Filed: 12/24/24 03:29> Mode of arrival: ambulatory <KILEY Brown Last Filed: 12/24/24 03:29> Limitations: no limitations <KILEY Brown Last Filed: 12/24/24 03:29> History of Present Illness HPI narrative: Patient is a 24-year-old female who presents the ED with report of lower abdominal pain. Patient reports she had a emergency section in March 2023. Last Sunday she underwent Caesarean scar revision by Dr. Nicolas Infante at [facility]. States over the last couple of days she has been having increased pain throughout her lower abdomen around her incision sites. Denies drainage. Denies fevers. Reports intermittent nausea, denies vomiting. Denies urinary complaints. Denies vaginal bleeding. Has not taken anything for pain. <KILEY Brown Last Filed: 12/24/24 03:29> Related Data Allergies/Adverse reactions: Allergies Allergy/AdvReac Type Severity Reaction Status Date / Time No Known Allergies Allergy Verified 12/23/24 20:20 <KILEY Borwn Last Filed: 12/24/24 03:29> Review of Systems Review of Systems: All systems reviewed & are unremarkable except as noted in HPI. <KILEY Brown Last Filed: 12/24/24 03:29> All systems reviewed & are unremarkable except as noted in HPI and below <KILEY Brown Last Filed: 12/24/24 03:29> Exam Narrative: GENERAL: Well appearing, well-nourished, non-toxic, in no acute distress. HEAD: Normocephalic, atraumatic. RESPIRATORY: Airway patent, respirations nonlabored. Clear to auscultation bilaterally, no rales, rhonchi, wheezing. CARDIOVASCULAR: Regular rate and rhythm without murmurs, rubs, or gallops. ABDOMINAL: Horizontal scar across suprapubic region with some dried crusted blood. No purulent drainage. Steri-strips intact but appear to be slightly soiled with old dried blood. Mild diffuse tenderness throughout lower abdomen/suprapubic region. Abdomen is soft, nondistended. Normoactive BS. MUSCULOSKELETAL: Moves all extremities. No gross deformities. SKIN: Warm, dry, normal color. NEURO: A&O X3. Speech clear. PSYCHIATRIC: Appropriate mood and affect. Normal interaction. <Vicenta Rick PA-C - Last Filed: 12/24/24 03:29> Course ARTIST COLOR SEPARATION/PA Physician Supervision PI discussed patient with me. Patient signed out to me pending result of her abdomen CT. This results and shows no evidence of abscess is no evidence of infection based on labs. However, there is a right ovarian cystic lesion. I evaluated patient at bedside as she had been requesting to leave against medical advice and requesting a work note. She denies any pain on her right side. Stable for discharge. Advised to take ibuprofen, f/u w/ creel cleaner (provided referral if needed), and given return precautions. <Babs Barragan MD - Last Filed: 12/24/24 04:40> Vital Signs Vital signs: Vital Signs Temperature 98.1 F 12/23/24 20:42 Pulse Rate 85 12/23/24 20:42 Respiratory Rate 16 12/23/24 20:42 Blood Pressure 127/78 12/23/24 20:42 Pulse Oximetry 100 12/23/24 20:42 Oxygen Delivery Room Air 12/23/24 20:42 Temperature 98.1 F 12/23/24 20:42 Pulse Rate 83 12/24/24 02:00 Respiratory Rate 18 12/24/24 02:00 Blood Pressure 136/88 12/24/24 02:00 Pulse Oximetry 97 12/24/24 02:00 Oxygen Delivery Room Air 12/23/24 20:42 <Vicenta Rick PA-C - Last Filed: 12/24/24 03:29> Vital Signs Temperature 98.1 F 12/23/24 20:42 Pulse Rate 85 12/23/24 20:42 Respiratory Rate 16 12/23/24 20:42 Blood Pressure 127/78 12/23/24 20:42 Pulse Oximetry 100 12/23/24 20:42 Oxygen Delivery Room Air 12/23/24 20:42 Temperature 98.1 F 12/23/24 20:42 Pulse Rate 83 12/24/24 02:00 Respiratory Rate 18 12/24/24 02:00 Blood Pressure 136/88 12/24/24 02:00 Pulse Oximetry 97 12/24/24 02:00 Oxygen Delivery Room Air 12/23/24 20:42 <Babs Barragan MD - Last Filed: 12/24/24 04:40> MDM - Skin/Abscess/Foreign Bdy MDM Narrative Medical decision making narrative: Patient presented to ED with lower abdominal pain, recent scar revision. Vital signs are stable upon arrival. Patient is in no acute distress. Laboratory studies are unremarkable. No leukocytosis. Stable H&H. Minimal anion gap of 15. Otherwise stable electrolytes. Stable glucose. Lactic acid within normal range. negative. CT scan of abdomen/pelvis was obtained. While waiting for STAT RAD CT results, patient door-dashed [facility] to the emergency department. She was advised against eating or drinking until CT scan results. Care signed out to Dr. Barragan at shift change pending STAT RAD CT results. <Vicenta Rick PA-C - Last Filed: 12/24/24 03:29> Medical Records Attestation: I reviewed the patient's medical records. <Vicenta Rick PA-C - Last Filed: 12/24/24 03:29> Lab Data Attestation: I reviewed the patient's lab results. <Vicenta Rick PA-C - Last Filed: 12/24/24 03:29> Result diagrams: 12/23/24 23:44 12/23/24 23:44 <Vicenta Rick PA-C - Last Filed: 12/24/24 03:29> Labs: Lab Results 12/23/24 12/24/24 Range/Units 23:44 00:39 WBC 8.7 (4.5-10.0) K/mm3 RBC 5.03 (4.2-5.4) M/mm3 Hgb 14.6 (12.0-15.0) g/dL Hct 43.4 (37.0-47.0) % MCV 86.3 (80-100) fl MCH 29.0 (26-34) pg MCHC 33.6 (32-36) g/dl RDW 12.0 (11.5-14.5) % Plt Count 337 (150-375) k/mm3 MPV 9.0 (7.4-10.4) fl Immature Gran % (Auto) 0.2 (0-0.5) % Neut % (Auto) 45.1 L (45.5-73.1) % Lymph % (Auto) 45.8 H (18.3-44.2) % Grainger % (Auto) 6.7 (2.6-8.5) % Eos % (Auto) 1.6 (0-4.4) % Baso % (Auto) 0.6 (0.2-1.2) % Lymph # (Auto) 3.99 H (0.9-3.2) K/mm3 Grainger # (Auto) 0.6 (0.1-0.6) K/mm3 Eos # (Auto) 0.1 (0-0.3) K/mm3 Baso # (Auto) 0.1 (0.0-0.1) K/mm3 Abs Immat Gran (auto) 0.02 (0.00-0.031) K/mm3 Absolute Neuts (auto) 3.9 (1.3-6.7) K/mm3 Absolute Nucleated RBC 0.000 (0.0-0.012) K/mm3 Nucleated RBC % 0.0 (0.0-0.2) % Sodium 138 (137-145) mmol/L Potassium 4.1 (3.4-5.0) mmol/L Chloride 100 (98-107) mmol/L Carbon Dioxide 23 (22-30) mmol/L Anion Gap 15 H (4-12) mmol/L BUN 20 H (7-17) mg/dL Creatinine 0.55 L (0.7-1.0) mg/dL Estim Creat Clear Calc 127 ml/min Estimated GFR > 60 (59 - ) Glucose 85 (65-110) mg/dL Lactic Acid 0.8 (0.7-2.0) mmol/L Calcium 9.8 (8.4-10.2) mg/dL POC Urine HCG, Qual Negative (Negative) <Vicenta Rick PA-C - Last Filed: 12/24/24 03:29> Lab Results 12/23/24 12/24/24 Range/Units 23:44 00:39 WBC 8.7 (4.5-10.0) K/mm3 RBC 5.03 (4.2-5.4) M/mm3 Hgb 14.6 (12.0-15.0) g/dL Hct 43.4 (37.0-47.0) % MCV 86.3 (80-100) fl MCH 29.0 (26-34) pg MCHC 33.6 (32-36) g/dl RDW 12.0 (11.5-14.5) % Plt Count 337 (150-375) k/mm3 MPV 9.0 (7.4-10.4) fl Immature Gran % (Auto) 0.2 (0-0.5) % Neut % (Auto) 45.1 L (45.5-73.1) % Lymph % (Auto) 45.8 H (18.3-44.2) % Grainger % (Auto) 6.7 (2.6-8.5) % Eos % (Auto) 1.6 (0-4.4) % Baso % (Auto) 0.6 (0.2-1.2) % Lymph # (Auto) 3.99 H (0.9-3.2) K/mm3 Grainger # (Auto) 0.6 (0.1-0.6) K/mm3 Eos # (Auto) 0.1 (0-0.3) K/mm3 Baso # (Auto) 0.1 (0.0-0.1) K/mm3 Abs Immat Gran (auto) 0.02 (0.00-0.031) K/mm3 Absolute Neuts (auto) 3.9 (1.3-6.7) K/mm3 Absolute Nucleated RBC 0.000 (0.0-0.012) K/mm3 Nucleated RBC % 0.0 (0.0-0.2) % Sodium 138 (137-145) mmol/L Potassium 4.1 (3.4-5.0) mmol/L Chloride 100 (98-107) mmol/L Carbon Dioxide 23 (22-30) mmol/L Anion Gap 15 H (4-12) mmol/L BUN 20 H (7-17) mg/dL Creatinine 0.55 L (0.7-1.0) mg/dL Estim Creat Clear Calc 127 ml/min Estimated GFR > 60 (59 - ) Glucose 85 (65-110) mg/dL Lactic Acid 0.8 (0.7-2.0) mmol/L Calcium 9.8 (8.4-10.2) mg/dL POC Urine HCG, Qual Negative (Negative) <Babs Barragan MD - Last Filed: 12/24/24 04:40> Imaging Data Attestation: I personally reviewed and interpreted this imaging study as follows: <Vicenta Rick PA-C - Last Filed: 12/24/24 03:29> Radiologist's impression: CT Abd Pelvis STAT RAD IMPRESSION: Right ovarian cystic lesion measures 3.6 x 2.9 cm. Mild free fluid in the pelvis. The need for pelvic ultrasound should be determined clinically. <Babs Barragan MD - Last Filed: 12/24/24 04:40> Discharge Plan Discharge Clinical Impression: Lower abdominal pain, History of section, unknown scar, Cyst of right ovary <Vicenta Rick PA-C - Last Filed: 12/24/24 03:29> Patient Disposition: Home, Self-Care <Vicenta Rick PA-C - Last Filed: 12/24/24 03:29> Condition: Stable <Vicenta Rick PA-C - Last Filed: 12/24/24 03:29> Instructions: Antibiotic Form, Ovarian Cyst (ED), Surgical Site Infections (ED), Abdominal Pain (ED) <KILEY Brown Last Filed: 12/24/24 03:29> Additional Instructions: Continue Tylenol and ibuprofen as needed for pain. Follow-up with your surgeon for further evaluation. Return to the emergency department with new or worsening symptoms. For the ovarian cyst, these are often helped with ibuprofen which is an NSAID (antiinflammatory). Follow-up with your Ob Gyne. If you do not have 1 the name of 1 is provided below. Return to the emergency department with any new or worsening symptoms. <Vicenta Rick PA-C - Last Filed: 12/24/24 03:29> Patient Language: Kinyarwanda <Vicenta Rick PA-C - Last Filed: 12/24/24 03:29> Follow-up/Referrals: PHYSICIAN NOT ON STAFF,NONSTAFF [Primary Care Provider] - Seymour Vega MD [Physician] - (assistant dean of students) <Vicenta Rick PA-C - Last Filed: 12/24/24 03:29> Stand Alone Forms: Work/School Release IP <Vicenta Rick PA-C - Last Filed: 12/24/24 03:29> Time of Disposition: 04:37 <Vicenta Rick PA-C - Last Filed: 12/24/24 03:29> 04:37 <Babs Barragan MD - Last Filed: 12/24/24 04:40>
[2024-12-24] MEDS: ACETAMINOPHEN 500 MG TABLET 1000 MG PO (00:42)
[2024-12-24 00:43] LABS: BEDSIDEPREGUCG Negative (Negative)
[2024-12-24 02:00] VITALS: BP 136/88; PULSE 83; RESP 18; O2SAT 97
--- NOTE | 2024-12-24 02:47 | PC.NURSE ---
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 Pt told by various members of staff multiple times, including Vicenta CARDONA and this RN, that there is not a specific time the scan results will come back.
[2024-12-24 03:00] VITALS: RESP 16; O2SAT 99
--- NOTE | 2024-12-24 04:36 | PC.NURSE ---
Pt repeatedly coming out to the nursing station asking when her CT scan results will be back. This RN explained to the pt again that there is no set time that the results will be back by. Pt then asked if she could get a note saying she was in the ED if she left AMA because I can't get this online pt account to work, it keeps telling me I need to call some number
== END 2024-12-24 04:47 | disposition home or self-care (01) ==
PROVIDERS: Physician Assistant; Emergency Provider Student in an Organized Health Care Education/Training Program
DX: N83.201 Unspecified ovarian cyst, right side (principal); R10.30 Lower abdominal pain, unspecified; Z98.890 Other specified postprocedural states
CPT/HCPCS: 36415; 74177; 80048; 81025; 83605; 85025; 99284; A9270; Q9967